=== PATIENT | female | born 1950 | race Caucasian/White ===

== ENCOUNTER 2021-05-02 10:02 | Outpatient (CLI) | payer MEDICARE | END 2021-05-02 10:03 | disposition home or self-care (01) | LOC: CSHMAMMO 10:02 | PROVIDERS: ATTEND Specialist | DX: Z12.31 Encounter for screening mammogram for malignant neoplasm of breast (principal); Z13.820 Encounter for screening for osteoporosis; M81.0 Age-related osteoporosis without current pathological fracture; M85.852 Other specified disorders of bone density and structure, left thigh | CPT/HCPCS: 77063; 77067; 77080 ==

== ENCOUNTER 2022-05-31 09:03 | Outpatient (CLI) | payer MEDICARE | END 2022-05-31 09:04 | disposition home or self-care (01) | LOC: CSHMAMMO 09:03 | PROVIDERS: ATTEND Internal Medicine | DX: Z12.31 Encounter for screening mammogram for malignant neoplasm of breast (principal); Z98.82 Breast implant status | CPT/HCPCS: 77063; 77067 ==

== ENCOUNTER 2022-06-01 07:20 | Outpatient (CLI) | payer MEDICARE ==
[2022-06-01] MEDS ORDERED: Iopamidol 300 61% 100 ML VIAL FS ONE (15:22)
== END 2022-06-01 07:21 | disposition home or self-care (01) ==
LOC: CSHCT 07:20
PROVIDERS: ATTEND Internal Medicine
DX: K59.00 Constipation, unspecified (principal); K56.609 Unspecified intestinal obstruction, unspecified as to partial versus complete obstruction; R10.11 Right upper quadrant pain
CPT/HCPCS: 74177; 82565; Q9967